=== PATIENT | male | born 1960 | race Caucasian/White ===

== ENCOUNTER → 2016-10-24 | Outpatient (CLI) | payer BC ==
[~2016-10-24] MED LIST: Albuterol 0.083% 2.5 MG/3 ML Neb Soln NEB ONE
== END ==
LOC: MW.RT 13:00
PROVIDERS: ATTEND Internal Medicine
DX: R06.2 Wheezing (principal)
CPT/HCPCS: 94060; 94729

== ENCOUNTER → 2016-11-18 | Outpatient (CLI) | payer BC ==
--- NOTE | 2016-11-18 10:01 | CR ---
EXAMINATION: Right elbow HISTORY: Pain COMPARISON: None TECHNIQUE: 3 views FINDINGS/IMPRESSION: There is no acute osseous abnormality, dislocation, or fracture identified. Bon e mineralization and joint spaces appear normal. No soft tissue swelling.
== END | disposition home or self-care (01) ==
LOC: MW.CHORTHO 07:42
PROVIDERS: ATTEND Orthopaedic Surgery
DX: M25.521 Pain in right elbow (principal); G89.29 Other chronic pain
CPT/HCPCS: 73080-26-RT; 73080-RT

== ENCOUNTER 2018-10-23 13:53 | Observation (INO) | payer BC ==
[2018-10-23] MEDS ORDERED: Sodium Chloride 0.9% 2.5 ML Syringe FLUSH PRN (13:57)
[2018-10-23] MEDS ORDERED: Albuterol/Ipratropium 3.0-0.5 MG/3 ML Neb Soln NEB ONE (13:57)
[2018-10-23] MEDS ORDERED: Sodium Chloride 0.9% 10 ML Syringe FLUSH PRN (13:57)
--- NOTE | 2018-10-23 13:58 | EDM.PDOC ---
ED HPI GENERAL MEDICAL PROBLEM - General Stated Complaint: SHORTNESS OF BREATH Time Seen by Provider: 10/23/18 13:57 Source of Information: Reports: Patient History Limitations: Reports: No Limitations - History of Present Illness INITIAL COMMENTS - FREE TEXT/NARRATIVE: HISTORY AND PHYSICAL: History of present illness: Patient is a 58-year-old male who presents to the emergency room with complaints of shortness of breath and productive cough. States he has had increased shortness of breath which is worse with ambulation or any physical activity. Does have a history of pneumonia which resulted in hospitalization for 9 days due to hypoxia. He denies any chest pain, abdominal pain, nausea, vomiting, diarrhea or constipation. States he has been able to eat and drink appropriately. Review of systems: As per history of present illness and below otherwise all systems reviewed and negative. Past medical history: As per history of present illness and as reviewed below otherwise noncontributory. Surgical history: As per history of present illness and as reviewed below otherwise noncontributory. Social history: See social history for further information Family history: As per history of present illness and as reviewed below otherwise noncontributory. Physical exam: General: Well-developed and well-nourished 58-year-old male. Alert and oriented. Nontoxic appearing and in no acute distress. HEENT: Atraumatic, normocephalic, pupils equal and reactive bilaterally, negative for conjunctival pallor or scleral icterus, mucous membranes moist, TMs normal bilaterally, throat clear, neck supple, nontender, trachea midline. No drooling or trismus noted. No meningeal signs. No hot potato voice noted. Lungs: Diminished with fine expiratory wheezing to the left lower lobe, breath sounds equal bilaterally, chest nontender. Heart: S1S2, regular rate and rhythm without overt murmur Abdomen: Soft, nondistended, nontender. Negative for masses or hepatosplenomegaly. Negative for costovertebral tenderness. Pelvis: Stable nontender. Genitourinary: Deferred. Rectal: Deferred. Skin: Intact, warm, dry. No lesions or rashes noted. Extremities: Atraumatic, negative for cords or calf pain. Neurovascular unremarkable. Neuro: Awake, alert, oriented. Cranial nerves II through XII unremarkable. Cerebellum unremarkable. Motor and sensory unremarkable throughout. Exam nonfocal. Notes: Patient does have oxygen saturation of 88% while ambulating. At rest with 2 L per nasal cannula he is 90-94%. Does have an elevation in his white count along with x-ray that shows no acute process. There are some increased vascular markings on the left lower lobe area with possible infiltrate. This would correlate with the patient's presentation and lab findings. Did discuss with patient inpatient versus outpatient treatment. He states he does not feel well enough to go home. Patient's oxygen saturation with ambulation is not above 90. Will call Dr. Fuentes. Dr. Fuentes was consulted on this patient for admission. He is agreeable to keeping this patient for observation. Patient is aware and agreeable. Denies any further questions or concerns at this time. Diagnostics: CBC, CMP, 2 view chest, EKG, blood cultures Therapeutics: DuoNeb, Solu-Medrol, Rocephin Impression: Pneumonia Hypoxia Plan: Observation admission to [facility] Definitive disposition and diagnosis as appropriate pending reevaluation and review of above. - Related Data Allergies Allergy/AdvReac Type Severity Reaction Status Date / Time No Known Allergies Allergy Verified 10/23/18 13:58 Home Meds: Home Meds . [No Known Home Meds] 06/28/15 [History] Past Medical History Other Respiratory History: With CPAP Other Gastrointestinal History: Blood per rectum, hx: Diverticulitis Other Genitourinary History: Hx: Abnormal Prostate exam ED ROS GENERAL - Review of Systems Review Of Systems: ROS reveals no pertinent complaints other than HPI. ED EXAM, GENERAL - Physical Exam Exam: See Below (See dictation) Course - Vital Signs Last Recorded V/S: Last Vital Signs Temp 98.7 F 10/23/18 15:36 Pulse 88 10/23/18 15:36 Resp 18 10/23/18 15:36 BP 129/73 10/23/18 15:36 Pulse Ox 97 10/23/18 15:36 - Orders/Labs/Meds Orders: Active Orders 24 hr Category Date Time Status Admission Status [Patient Status] [ADT] Stat ADT 10/23/18 14:59 Ordered Antiembolic Devices [RC] PER UNIT ROUTINE Care 10/23/18 16:17 Active Intake and Output [RC] Q12H Care 10/23/18 16:16 Active RT Aerosol Therapy [RC] ASDIRECTED Care 10/23/18 13:57 Active RT Aerosol Therapy [RC] ASDIRECTED Care 10/23/18 16:17 Active Vital Signs [RC] Q4H Care 10/23/18 16:16 Active Regular Diet [DIET] Diet 10/24/18 Breakfast Active BASIC METABOLIC PANEL,BMP [CHEM] AM Lab 10/24/18 05:11 Ordered CBC WITH AUTO DIFF [HEME] AM Lab 10/24/18 05:11 Ordered CULTURE BLOOD [BC] Stat Lab 10/23/18 14:59 Ordered CULTURE BLOOD [BC] Stat Lab 10/23/18 14:59 Ordered CULTURE SPUTUM + SMEAR [RM] Routine Lab 10/23/18 16:16 Ordered Acetaminophen [Tylenol] Med 10/23/18 16:26 Ordered 650 mg PO Q4H PRN Albuterol/Ipratropium [DuoNeb 3.0-0.5 MG/3 ML] Med 10/23/18 16:16 Active 3 ml NEB Q4HRRT PRN Ondansetron [Zofran] Med 10/23/18 16:26 Ordered 4 mg IVPUSH Q4H PRN Sodium Chloride 0.9% [Saline Flush] Med 10/23/18 13:57 Active 10 ml FLUSH ASDIRECTED PRN Sodium Chloride 0.9% [Saline Flush] Med 10/23/18 13:57 Active 2.5 ml FLUSH ASDIRECTED PRN cefTRIAXone [Rocephin] 1 gm Med 10/24/18 16:00 Active Sodium Chloride 0.9% [Normal Saline] 50 ml IV Q24H methylPREDNISolone Sod Succ [Solu-MEDROL] Med 10/24/18 04:00 Active 125 mg IVPUSH Q12H Blood Culture x2 Reflex Set [OM.PC] Stat Oth 10/23/18 14:59 Ordered Saline Lock Insert [OM.PC] Stat Oth 10/23/18 13:57 Ordered Sequential Compression Device [OM.PC] Routine Oth 10/23/18 16:16 Ordered Resuscitation Status Routine Resus Stat 10/23/18 16:16 Ordered Medication Orders Acetaminophen (Tylenol) 650 mg PO Q4H PRN PRN Reason: Pain/Fever Albuterol/Ipratropium (Duoneb 3.0-0.5 Mg/3 Ml) 3 ml NEB Q4HRRT PRN PRN Reason: Shortness of Breath Ceftriaxone Sodium 1 gm/ (Sodium Chloride) 50 mls @ 100 mls/hr IV Q24H AMADOR Methylprednisolone Sodium Succinate (Solu-Medrol) 125 mg IVPUSH Q12H AMADOR Ondansetron HCl (Zofran) 4 mg IVPUSH Q4H PRN PRN Reason: Nausea/Vomiting Sodium Chloride (Saline Flush) 10 ml FLUSH ASDIRECTED PRN PRN Reason: Keep Vein Open Sodium Chloride (Saline Flush) 2.5 ml FLUSH ASDIRECTED PRN PRN Reason: Keep Vein Open Labs: Laboratory Tests 10/23/18 10/23/18 Range/Units 14:00 14:00 WBC 14.24 H (4.0-11.0) K/uL RBC 4.38 L (4.50-5.90) M/uL Hgb 13.2 (13.0-17.0) g/dL Hct 39.7 (38.0-50.0) % MCV 90.6 (80.0-98.0) fL MCH 30.1 (27.0-32.0) pg MCHC 33.2 (31.0-37.0) g/dL RDW Std Deviation 42.9 (28.0-62.0) fl RDW Coeff of Bing 13 (11.0-15.0) % Plt Count 240 (150-400) K/uL MPV 9.70 (7.40-12.00) fL Neut % (Auto) 84.7 H (48.0-80.0) % Lymph % (Auto) 5.1 L (16.0-40.0) % [place] % (Auto) 9.5 (0.0-15.0) % Eos % (Auto) 0.6 (0.0-7.0) % Baso % (Auto) 0.1 (0.0-1.5) % Neut # (Auto) 12.1 H (1.4-5.7) K/uL Lymph # (Auto) 0.7 (0.6-2.4) K/uL [place] # (Auto) 1.4 H (0.0-0.8) K/uL Eos # (Auto) 0.1 (0.0-0.7) K/uL Baso # (Auto) 0.0 (0.0-0.1) K/uL Nucleated RBC % 0.0 /100WBC Nucleated RBCs # 0 K/uL Sodium 144 (136-148) mmol/L Potassium 4.0 (3.5-5.1) mmol/L Chloride 108 H (98-107) mmol/L Carbon Dioxide 28.7 (21.0-32.0) mmol/L BUN 16 (7.0-18.0) mg/dL Creatinine 1.2 (0.8-1.3) mg/dL Est Cr Clr Drug Dosing 76.76 mL/min Estimated GFR (MDRD) > 60.0 ml/min Glucose 134 H (74-106) mg/dL Calcium 9.2 (8.5-10.1) mg/dL Total Bilirubin 0.6 (0.2-1.0) mg/dL AST 20 (15-37) IU/L ALT 39 (14-63) IU/L Alkaline Phosphatase 117 H (46-116) U/L Total Protein 7.3 (6.4-8.2) g/dL Albumin 3.3 L (3.4-5.0) g/dL Globulin 4.0 (2.6-4.0) g/dL Albumin/Globulin Ratio 0.8 L (0.9-1.6) Meds: Medications Generic Name Dose Route Start Last Admin Trade Name Freq PRN Reason Stop Dose Admin Acetaminophen 650 mg 10/23/18 16:26 Tylenol PO Q4H PRN Pain/Fever Albuterol/Ipratropium 3 ml 10/23/18 16:16 Duoneb 3.0-0.5 Mg/3 Ml NEB Q4HRRT PRN Shortness of Breath Ceftriaxone Sodium 1 gm/ 50 mls @ 100 mls/hr 10/24/18 16:00 Sodium Chloride IV Q24H AMADOR Methylprednisolone Sodium Succinate 125 mg 10/24/18 04:00 Solu-Medrol IVPUSH Q12H AMADOR Ondansetron HCl 4 mg 10/23/18 16:26 Zofran IVPUSH Q4H PRN Nausea/Vomiting Sodium Chloride 10 ml 10/23/18 13:57 Saline Flush FLUSH ASDIRECTED PRN Keep Vein Open Sodium Chloride 2.5 ml 10/23/18 13:57 Saline Flush FLUSH ASDIRECTED PRN Keep Vein Open Discontinued Medications Generic Name Dose Route Start Last Admin Trade Name Freq PRN Reason Stop Dose Admin Albuterol/Ipratropium 3 ml 10/23/18 13:57 10/23/18 14:07 Duoneb 3.0-0.5 Mg/3 Ml NEB 10/23/18 13:58 3 ml ONETIME ONE Administration Azithromycin 500 mg 10/23/18 16:16 Zithromax PO 10/23/18 16:17 Q24H ONE Ceftriaxone Sodium/Dextrose 1 50 mls @ 100 mls/hr 10/23/18 14:59 10/23/18 15: 22 gm/ Premix IV 10/23/18 15:28 100 mls/hr ONETIME ONE Administration Methylprednisolone Sodium Succinate 125 mg 10/23/18 15:00 10/23/18 15:22 Solu-Medrol IVPUSH 10/23/18 15:01 125 mg ONETIME ONE Administration Departure - Departure Time of Disposition: 16:38 Disposition: Refer to Observation Clinical Impression: Hypoxia Pneumonia Qualifiers: Pneumonia type: due to unspecified organism Laterality: unspecified laterality Lung location: unspecified part of lung Qualified Code(s): J18.9 - Pneumonia, unspecified organism Referrals: PCP,None [Primary Care Provider] - Forms: ED Department Discharge - My Orders Last 24 Hours: My Active Orders 10/23/18 13:57 RT Aerosol Therapy [RC] ASDIRECTED Sodium Chloride 0.9% [Saline Flush] 10 ml FLUSH ASDIRECTED PRN Sodium Chloride 0.9% [Saline Flush] 2.5 ml FLUSH ASDIRECTED PRN Saline Lock Insert [OM.PC] Stat 10/23/18 14:59 Admission Status [Patient Status] [ADT] Stat CULTURE BLOOD [BC] Stat CULTURE BLOOD [BC] Stat Blood Culture x2 Reflex Set [OM.PC] Stat - Assessment/Plan Last 24 Hours: My Active Orders 10/23/18 13:57 RT Aerosol Therapy [RC] ASDIRECTED Sodium Chloride 0.9% [Saline Flush] 10 ml FLUSH ASDIRECTED PRN Sodium Chloride 0.9% [Saline Flush] 2.5 ml FLUSH ASDIRECTED PRN Saline Lock Insert [OM.PC] Stat 10/23/18 14:59 Admission Status [Patient Status] [ADT] Stat CULTURE BLOOD [BC] Stat CULTURE BLOOD [BC] Stat Blood Culture x2 Reflex Set [OM.PC] Stat
[2018-10-23 14:40] LABS: CHLORIDE,CL 108 mmol/L (98-107); SODIUM,NA 144 mmol/L (136-148)
[2018-10-23] MEDS ORDERED: cefTRIAXone 1 GM in Premix Bag 1 BAG IV ONE (14:59)
[2018-10-23] MEDS ORDERED: methylPREDNISolone Sodium Succinate 125 MG/2 ML SDV IVPUSH ONE (15:00)
--- NOTE | 2018-10-23 15:11 | CR ---
INDICATION: Shortness of breath TECHNIQUE: Chest 2 views. COMPARISON: None FINDINGS: The heart is normal in size. The pulmonary vasculature is within normal limits. The lungs are clear without focal consolidation, pleural effusion or pneumothorax. There are mild degenerative changes of the thoracic spine. IMPRESSION: No acute process. Dictated by Leona Amezquita MD @ 10/23/2018 3:08:19 PM Dictated by: Leona Amezquita MD @ 10/23/2018 15:08:47 (Electronically Signed)
[2018-10-23] MEDS ORDERED: Albuterol/Ipratropium 3.0-0.5 MG/3 ML Neb Soln NEB PRN (16:16)
[2018-10-23] MEDS ORDERED: Azithromycin 250 MG Tab PO ONE (16:16)
--- NOTE | 2018-10-23 16:23 | PCM.HP ---
H&P History of Present Illness - General Date of Service: 10/23/18 Admit Problem/Dx: Admission Diagnosis/Problem Admission Diagnosis/Problem Pneumonia - History of Present Illness Initial Comments - Free Text/Narative: The patient is a 58-year-old male who presented to the ER with increased shortness of breath and cough for the past few days. He noted that his cough was productive but is now more dry. He notes subjective fevers but hasn't had a thermometer at home. He notes the shortness of breath is worse with exertion but denies any orthopnea. He denies chest pain, abdominal pain, nausea, vomiting. He notes that he was admitted about 3 or 4 years ago for pneumonia. The patient had pulmonary function testing back in October 2016 and the report reads mild obstructive defect, but the patient states he was never started on any medications at that time. Patient is a former smoker but quit over 10 years ago. Patient denies any history of OH, CHF or stroke. In the ER, lab work showed an elevated white count 14, chest x-ray was read as no acute cardiopulmonary process. An EKG showed normal sinus rhythm. He was given a breathing treatment, one dose of Rocephin and 1 dose of Solu-Medrol. In the ER, he was satting 88% on room air, so they put him on O2 is now 97% on 2 L - Related Data Allergies/Adverse Reactions: Allergies Allergy/AdvReac Type Severity Reaction Status Date / Time No Known Allergies Allergy Verified 10/23/18 13:58 Home Medications: Home Meds . [No Known Home Meds] 06/28/15 [History] Past Medical History Cardiovascular History: Reports: None Respiratory History: Reports: Pneumonia, Recurrent Other Respiratory History: With CPAP Other Gastrointestinal History: Blood per rectum, hx: Diverticulitis Other Genitourinary History: Hx: Abnormal Prostate exam Endocrine/Metabolic History: Reports: None - Past Surgical History Other HEENT Surgeries/Procedures: polyps from vocal cords removed Social & Family History - Family History Family Medical History: Noncontributory - Tobacco Use Smoking Status *Q: Former Smoker Used Tobacco, but Quit: Yes Month/Year Tobacco Last Used: 2007 - Caffeine Use Caffeine Use: Reports: Coffee, Soda - Recreational Drug Use Recreational Drug Use: No H&P Review of Systems - Review of Systems: Review Of Systems: See Below General: Reports: Fever HEENT: Reports: No Symptoms. Denies: Sinus Congestion Pulmonary: Reports: Shortness of Breath, Cough Cardiovascular: Reports: No Symptoms Gastrointestinal: Reports: No Symptoms Genitourinary: Reports: No Symptoms Musculoskeletal: Reports: No Symptoms Skin: Reports: No Symptoms Psychiatric: Reports: No Symptoms Neurological: Reports: No Symptoms Hematologic/Lymphatic: Reports: No Symptoms Immunologic: Reports: No Symptoms Exam - Exam Exam: See Below - Vital Signs Vital Signs: Last Vital Signs Temp 98.7 F 10/23/18 15:36 Pulse 88 10/23/18 15:36 Resp 18 10/23/18 15:36 BP 129/73 10/23/18 15:36 Pulse Ox 97 10/23/18 15:36 Weight: 99.79 kg - Exam Quality Assessment: Supplemental Oxygen General: Alert, Oriented, Cooperative HEENT: Conjunctiva Clear, Mucosa Moist & [place], Posterior Pharynx Clear, Pupils Equal, Pupils Reactive Neck: Supple, Trachea Midline Lungs: Decreased Breath Sounds Cardiovascular: Regular Rate, Regular Rhythm GI/Abdominal Exam: Normal Bowel Sounds, Soft, Non-Tender, No Distention Extremities: No Pedal Edema Skin: Warm, Dry, Intact Neuro Extensive - Mental Status: Alert, Oriented x3 Psychiatric: Alert, Normal Affect, Normal Mood - Patient Data Lab Results Last 24 hrs: Laboratory Results - last 24 hr 10/23/18 10/23/18 Range/Units 14:00 14:00 WBC 14.24 H (4.0-11.0) K/uL RBC 4.38 L (4.50-5.90) M/uL Hgb 13.2 (13.0-17.0) g/dL Hct 39.7 (38.0-50.0) % MCV 90.6 (80.0-98.0) fL MCH 30.1 (27.0-32.0) pg MCHC 33.2 (31.0-37.0) g/dL RDW Std Deviation 42.9 (28.0-62.0) fl RDW Coeff of Bing 13 (11.0-15.0) % Plt Count 240 (150-400) K/uL MPV 9.70 (7.40-12.00) fL Neut % (Auto) 84.7 H (48.0-80.0) % Lymph % (Auto) 5.1 L (16.0-40.0) % [place] % (Auto) 9.5 (0.0-15.0) % Eos % (Auto) 0.6 (0.0-7.0) % Baso % (Auto) 0.1 (0.0-1.5) % Neut # (Auto) 12.1 H (1.4-5.7) K/uL Lymph # (Auto) 0.7 (0.6-2.4) K/uL [place] # (Auto) 1.4 H (0.0-0.8) K/uL Eos # (Auto) 0.1 (0.0-0.7) K/uL Baso # (Auto) 0.0 (0.0-0.1) K/uL Nucleated RBC % 0.0 /100WBC Nucleated RBCs # 0 K/uL Sodium 144 (136-148) mmol/L Potassium 4.0 (3.5-5.1) mmol/L Chloride 108 H (98-107) mmol/L Carbon Dioxide 28.7 (21.0-32.0) mmol/L BUN 16 (7.0-18.0) mg/dL Creatinine 1.2 (0.8-1.3) mg/dL Est Cr Clr Drug Dosing 76.76 mL/min Estimated GFR (MDRD) > 60.0 ml/min Glucose 134 H (74-106) mg/dL Calcium 9.2 (8.5-10.1) mg/dL Total Bilirubin 0.6 (0.2-1.0) mg/dL AST 20 (15-37) IU/L ALT 39 (14-63) IU/L Alkaline Phosphatase 117 H (46-116) U/L Total Protein 7.3 (6.4-8.2) g/dL Albumin 3.3 L (3.4-5.0) g/dL Globulin 4.0 (2.6-4.0) g/dL Albumin/Globulin Ratio 0.8 L (0.9-1.6) Result Diagrams: 10/23/18 14:00 10/23/18 14:00 Franco Results Last 24 hrs: Microbiology 10/23/18 15:12 Anaerobic Blood Culture - Final Blood - Venous - Lab Draw Problem List Initiated/Reviewed/Updated: Yes Orders Last 24hrs: Active Orders 24 hr Category Date Time Status Admission Status [Patient Status] [ADT] Stat ADT 10/23/18 14:59 Active Antiembolic Devices [RC] PER UNIT ROUTINE Care 10/23/18 16:17 Ordered Intake and Output [RC] ASDIRECTED Care 10/23/18 16:16 Ordered RT Aerosol Therapy [RC] ASDIRECTED Care 10/23/18 13:57 Active RT Aerosol Therapy [RC] ASDIRECTED Care 10/23/18 16:17 Ordered Vital Signs [RC] PER UNIT ROUTINE Care 10/23/18 16:16 Ordered Regular Diet [DIET] Diet 10/24/18 Breakfast Ordered BASIC METABOLIC PANEL,BMP [CHEM] Routine Lab 10/23/18 16:16 Ordered CBC WITH AUTO DIFF [HEME] AM Lab 10/24/18 05:11 Ordered CULTURE BLOOD [BC] Stat Lab 10/23/18 15:05 Received CULTURE BLOOD [BC] Stat Lab 10/23/18 15:12 Results CULTURE SPUTUM + SMEAR [RM] Routine Lab 10/23/18 16:16 Ordered Albuterol/Ipratropium [DuoNeb 3.0-0.5 MG/3 ML] Med 10/23/18 16:16 Ordered 3 ml NEB Q4HRRT PRN Azithromycin [Zithromax] Med 10/23/18 16:16 Once 500 mg PO Q24H ONE Sodium Chloride 0.9% [Saline Flush] Med 10/23/18 13:57 Active 10 ml FLUSH ASDIRECTED PRN Sodium Chloride 0.9% [Saline Flush] Med 10/23/18 13:57 Active 2.5 ml FLUSH ASDIRECTED PRN cefTRIAXone [Rocephin] 1 gm Med 10/23/18 16:30 Ordered Sodium Chloride 0.9% [Normal Saline] 50 ml IV Q24H methylPREDNISolone Sod Succ [Solu-MEDROL] Med 10/23/18 16:30 Ordered 125 mg IVPUSH Q12H Blood Culture x2 Reflex Set [OM.PC] Stat Oth 10/23/18 14:59 Ordered Saline Lock Insert [OM.PC] Stat Oth 10/23/18 13:57 Ordered Sequential Compression Device [OM.PC] Routine Oth 10/23/18 16:16 Ordered Resuscitation Status Routine Resus Stat 10/23/18 16:16 Ordered Medication Orders Sodium Chloride (Saline Flush) 10 ml FLUSH ASDIRECTED PRN PRN Reason: Keep Vein Open Sodium Chloride (Saline Flush) 2.5 ml FLUSH ASDIRECTED PRN PRN Reason: Keep Vein Open Assessment/Plan Comment:: 1. Admit for observation 2. Code status- full 3. Vitals per routine 4. I/Os per routine 5. Diet- regular 6. DVT prophylaxis with SCD 7. Hypoxia secondary to possible COPD exacerbation vs pneumonia- will treat with antibiotics (Rocephin and Azithromycin), duonebs, solumedrol. Will try to obtain a sputum culture.
[2018-10-23] MEDS ORDERED: Acetaminophen 325 MG Tab PO PRN (16:26)
[2018-10-23] MEDS ORDERED: Ondansetron 4 MG/2 ML SDV IVPUSH PRN (16:26)
[2018-10-24] MEDS ORDERED: methylPREDNISolone Sodium Succinate 125 MG/2 ML SDV IVPUSH SCH (04:00)
[2018-10-24 06:38] LABS: CHLORIDE,CL 107 mmol/L (98-107); SODIUM,NA 143 mmol/L (136-148)
[2018-10-24 08:14] VITALS: BP 140/77
--- NOTE | 2018-10-24 10:03 | PCM.DCSUM1 ---
Discharge Summary - Discharge Data Discharge Date: 10/24/18 Discharge Disposition: Home, Self-Care 01 Condition: Stable - Patient Summary/Data Hospital Course: 58 yo male with pmh of COPD who was admitted for COPD exacerbation and possible pneumonia. He presented with shortness of breath, cough and wheezing. He has a home O2 meter and he was reported a reading of 88% or room air. His WBC was 14,000. His CXR showed no acute process. He was treated with duonebs, solumedrol, rocephine and azithromycin with improvement in symptoms. Today he is walking the hallways on room air and satting 90%. He was dicharged on five more days of azithromycin, and prednisone with flovent and albuterol inhaler. - Discharge Plan Prescriptions/Med Rec: Albuterol [Proventil HFA] 1 puff INH QID PRN #1 inhaler PRN Reason: Wheezing Azithromycin [Zithromax] 250 mg PO DAILY #5 tab Fluticasone Propionate [Flovent] 1 puff IH BID #1 disk.w.dev predniSONE [Prednisone] 50 mg PO DAILY #5 tablet Home Medications: Home Meds Citalopram [Citalopram HBr] 20 mg PO DAILY 10/23/18 [History] Umeclidinium Brm/Vilanterol Tr [Anoro Ellipta 62.5-25 MCG] 1 each IH DAILY 10/23 [History] atorvaSTATin [Lipitor] 20 mg PO BEDTIME 10/23/18 [History] Albuterol [Proventil HFA] 1 puff INH QID PRN #1 inhaler 10/24/18 [Rx] Azithromycin [Zithromax] 250 mg PO DAILY #5 tab 10/24/18 [Rx] Fluticasone Propionate [Flovent] 1 puff IH BID #1 disk.w.dev 10/24/18 [Rx] predniSONE [Prednisone] 50 mg PO DAILY #5 tablet 10/24/18 [Rx] Patient Handouts: Albuterol inhalation aerosol, Azithromycin tablets, Fluticasone inhalation aerosol, Prednisone tablets [facility] - - Discharge Summary/Plan Comment DC Time >30 min.: No - Patient Data Vitals - Most Recent: Last Vital Signs Temp 36.6 C 10/24/18 08:00 Pulse 87 10/24/18 08:00 Resp 19 10/24/18 08:00 BP 140/77 10/24/18 08:00 Pulse Ox 91 L 10/24/18 08:00 Weight - Most Recent: 99.79 kg I&O - Last 24 hours: Intake & Output 10/23/18 10/24/18 10/24/18 22:59 06:59 14:59 Intake Total 800 Output Total 600 Balance 200 Lab Results - Last 24 hrs: Laboratory Results - last 24 hr 10/23/18 10/23/18 10/24/18 Range/Units 14:00 14:00 06:02 WBC 14.24 H 15.22 H (4.0-11.0) K/uL RBC 4.38 L 4.25 L (4.50-5.90) M/uL Hgb 13.2 12.8 L (13.0-17.0) g/dL Hct 39.7 38.2 (38.0-50.0) % MCV 90.6 89.9 (80.0-98.0) fL MCH 30.1 30.1 (27.0-32.0) pg MCHC 33.2 33.5 (31.0-37.0) g/dL RDW Std Deviation 42.9 42.3 (28.0-62.0) fl RDW Coeff of Bing 13 13 (11.0-15.0) % Plt Count 240 262 (150-400) K/uL MPV 9.70 9.60 (7.40-12.00) fL Neut % (Auto) 84.7 H 91.6 H (48.0-80.0) % Lymph % (Auto) 5.1 L 5.1 L (16.0-40.0) % [place] % (Auto) 9.5 3.2 (0.0-15.0) % Eos % (Auto) 0.6 0.0 (0.0-7.0) % Baso % (Auto) 0.1 0.1 (0.0-1.5) % Neut # (Auto) 12.1 H 14.0 H (1.4-5.7) K/uL Lymph # (Auto) 0.7 0.8 (0.6-2.4) K/uL [place] # (Auto) 1.4 H 0.5 (0.0-0.8) K/uL Eos # (Auto) 0.1 0.0 (0.0-0.7) K/uL Baso # (Auto) 0.0 0.0 (0.0-0.1) K/uL Nucleated RBC % 0.0 0.0 /100WBC Nucleated RBCs # 0 0 K/uL Sodium 144 (136-148) mmol/L Potassium 4.0 (3.5-5.1) mmol/L Chloride 108 H (98-107) mmol/L Carbon Dioxide 28.7 (21.0-32.0) mmol/L BUN 16 (7.0-18.0) mg/dL Creatinine 1.2 (0.8-1.3) mg/dL Est Cr Clr Drug Dosing 76.76 mL/min Estimated GFR (MDRD) > 60.0 ml/min Glucose 134 H (74-106) mg/dL Calcium 9.2 (8.5-10.1) mg/dL Total Bilirubin 0.6 (0.2-1.0) mg/dL AST 20 (15-37) IU/L ALT 39 (14-63) IU/L Alkaline Phosphatase 117 H (46-116) U/L Total Protein 7.3 (6.4-8.2) g/dL Albumin 3.3 L (3.4-5.0) g/dL Globulin 4.0 (2.6-4.0) g/dL Albumin/Globulin Ratio 0.8 L (0.9-1.6) 10/24/18 Range/Units 06:02 WBC (4.0-11.0) K/uL RBC (4.50-5.90) M/uL Hgb (13.0-17.0) g/dL Hct (38.0-50.0) % MCV (80.0-98.0) fL MCH (27.0-32.0) pg MCHC (31.0-37.0) g/dL RDW Std Deviation (28.0-62.0) fl RDW Coeff of Bing (11.0-15.0) % Plt Count (150-400) K/uL MPV (7.40-12.00) fL Neut % (Auto) (48.0-80.0) % Lymph % (Auto) (16.0-40.0) % [place] % (Auto) (0.0-15.0) % Eos % (Auto) (0.0-7.0) % Baso % (Auto) (0.0-1.5) % Neut # (Auto) (1.4-5.7) K/uL Lymph # (Auto) (0.6-2.4) K/uL [place] # (Auto) (0.0-0.8) K/uL Eos # (Auto) (0.0-0.7) K/uL Baso # (Auto) (0.0-0.1) K/uL Nucleated RBC % /100WBC Nucleated RBCs # K/uL Sodium 143 (136-148) mmol/L Potassium 4.6 (3.5-5.1) mmol/L Chloride 107 (98-107) mmol/L Carbon Dioxide 26.4 (21.0-32.0) mmol/L BUN 18 (7.0-18.0) mg/dL Creatinine 1.1 (0.8-1.3) mg/dL Est Cr Clr Drug Dosing 78.91 mL/min Estimated GFR (MDRD) > 60.0 ml/min Glucose 172 H (74-106) mg/dL Calcium 9.3 (8.5-10.1) mg/dL Total Bilirubin (0.2-1.0) mg/dL AST (15-37) IU/L ALT (14-63) IU/L Alkaline Phosphatase (46-116) U/L Total Protein (6.4-8.2) g/dL Albumin (3.4-5.0) g/dL Globulin (2.6-4.0) g/dL Albumin/Globulin Ratio (0.9-1.6) RIKI Results - Last 24 hrs: Microbiology 10/23/18 18:25 Gram Stain - Preliminary Sputum - Expectorated 10/23/18 15:12 Anaerobic Blood Culture - Final Blood - Venous - Lab Draw Med Orders - Current: Current Medications Acetaminophen (Tylenol) 650 mg PO Q4H PRN PRN Reason: Pain/Fever Albuterol/Ipratropium (Duoneb 3.0-0.5 Mg/3 Ml) 3 ml NEB Q4HRRT PRN PRN Reason: Shortness of Breath Ceftriaxone Sodium 1 gm/ (Sodium Chloride) 50 mls @ 100 mls/hr IV Q24H [facility] Methylprednisolone Sodium Succinate (Solu-Medrol) 125 mg IVPUSH Q12H [facility] Last Admin: 10/24/18 04:08 Dose: 125 mg Ondansetron HCl (Zofran) 4 mg IVPUSH Q4H PRN PRN Reason: Nausea/Vomiting Sodium Chloride (Saline Flush) 10 ml FLUSH ASDIRECTED PRN PRN Reason: Keep Vein Open Sodium Chloride (Saline Flush) 2.5 ml FLUSH ASDIRECTED PRN PRN Reason: Keep Vein Open Discontinued Medications Albuterol/Ipratropium (Duoneb 3.0-0.5 Mg/3 Ml) 3 ml NEB ONETIME ONE Stop: 10/23/18 13:58 Last Admin: 10/23/18 14:07 Dose: 3 ml Azithromycin (Zithromax) 500 mg PO Q24H ONE Stop: 10/23/18 16:17 Last Admin: 10/23/18 16:53 Dose: 500 mg Ceftriaxone Sodium/Dextrose 1 (gm/ Premix) 50 mls @ 100 mls/hr IV ONETIME ONE Stop: 10/23/18 15:28 Last Admin: 10/23/18 15:22 Dose: 100 mls/hr Methylprednisolone Sodium Succinate (Solu-Medrol) 125 mg IVPUSH ONETIME ONE Stop: 10/23/18 15:01 Last Admin: 10/23/18 15:22 Dose: 125 mg
[2018-10-24] MEDS ORDERED: cefTRIAXone 1 GM in Sodium Chloride 0.9% 50 ML IV SCH (16:00)
== END 2018-10-24 10:30 | disposition home or self-care (01) ==
LOC: MW.ED 13:53 → MW.MS 15:22
PROVIDERS: ADMIT Internal Medicine; ATTEND Internal Medicine
DX: J44.1 Chronic obstructive pulmonary disease with (acute) exacerbation (principal); Z99.89 Dependence on other enabling machines and devices; Z87.01 Personal history of pneumonia (recurrent); Z87.891 Personal history of nicotine dependence; Z79.51 Long term (current) use of inhaled steroids; Z79.52 Long term (current) use of systemic steroids; Z79.899 Other long term (current) drug therapy
CPT/HCPCS: 36415; 71046; 80048; 80053; 85025; 87040; 87070; 87205; 93005; 94640; 96365; 96375; 99285; A9270; J0696; J2930; 96376; G0378; J7620-GY

== ENCOUNTER 2020-05-17 22:34 | Emergency (ER) | payer BC, OTHER ==
[2020-05-17] MEDS ORDERED: Sodium Chloride 0.9% 10 ML Syringe FLUSH PRN (22:56)
[2020-05-17] MEDS ORDERED: Sodium Chloride 0.9% 2.5 ML Syringe FLUSH PRN (22:56)
[2020-05-17] MEDS ORDERED: Albuterol 8 GM Inhaler INH ONE (22:59)
[2020-05-17] MEDS ORDERED: methylPREDNISolone Sodium Succinate 125 MG/2 ML SDV IVPUSH STA (23:01)
--- NOTE | 2020-05-17 23:01 | EDM.PDOC ---
ED HPI GENERAL MEDICAL PROBLEM - General Chief Complaint: Respiratory Problem Stated Complaint: SOB Time Seen by Provider: 05/17/20 22:42 - History of Present Illness INITIAL COMMENTS - FREE TEXT/NARRATIVE: History of present illness: [] The patient is short of breath and has low oxygen saturation of 88-90. He has a home oxygen monitor. He does not have much cough and he does not have any acute fever. He did have symptoms for about days of weakness and shortness of breath with cough. He was diagnosed 7 days ago was COVID positive. Patient has been relatively asymptomatic until tonight. There is no fever or cough. Re view of his old chart reveals in October of last year he felt similar to the night and had a pneumonia for which he required overnight hospitalization. The patient does not use an inhaler chamber but just uses his albuterol inhaler at home. He does not have a nebulizer. He is not on steroids recently. Review of systems: As per history of present illness and below otherwise all systems reviewed and negative. Past medical history: As per history of present illness and as reviewed below otherwise noncontributory. Surgical history: As per history of present illness and as reviewed below otherwise noncontributory. Social history: No reported history of drug or alcohol abuse. Family history: As per history of present illness and as reviewed below otherwise noncontributory. Physical exam: Constitutional - well developed, well-nourished and in no acute distress HEENT - normocephalic, no evidence of trauma - external nose and mouth normal - no mass in neck and no JVD - mucosae moist EYES - full EOM, PERRL, no icterus - no evidence of inflammation, injection, or drainage Respiratory - no respiratory distress, equal bilateral expansion, lungs clear to auscultation and no abnormal lung sounds Cardiovascular - Regular Rhythm with S1 and S2 appreciated and no murmur, gallop or rub. GI - abdomen soft without distension or organomegaly - normal bowel sounds - no guard or rebound Musculoskeletal no gross deformity of long bones or joints - no tenderness, swelling or edema Neurologic - Alert and oriented times four - CN II-XII grossly intact - motor sensory and coordination symmetrically normal Psychiatric - appropriate mood and affect with normal thought content Hematologic - No petechiae or purpura - mucosa appropriate color and sclera not pale - normal nail bed color and refill Integument - no rash or evidence of trauma - normal turgor Diagnostics: [] Therapeutics: [] Impression: [] Plan: [] Definitive disposition and diagnosis as appropriate pending reevaluation and review of above. - Related Data Allergies Allergy/AdvReac Type Severity Reaction Status Date / Time No Known Allergies Allergy Verified 05/17/20 22:54 Home Meds: Home Meds Citalopram [Citalopram HBr] 20 mg PO DAILY 10/23/18 [History] Umeclidinium Brm/Vilanterol Tr [Anoro Ellipta 62.5-25 MCG] 1 each IH DAILY 10/23/18 [History] atorvaSTATin [Lipitor] 20 mg PO BEDTIME 10/23/18 [History] Albuterol [Proventil HFA] 1 puff INH QID PRN #1 inhaler 10/24/18 [Rx] Azithromycin [Zithromax] 250 mg PO DAILY #5 tab 10/24/18 [Rx] Fluticasone Propionate [Flovent] 1 puff IH BID #1 disk.w.dev 10/24/18 [Rx] predniSONE [Prednisone] 50 mg PO DAILY #5 tablet 10/24/18 [Rx] predniSONE [Prednisone] 60 mg PO DAILY 5 Days #24 tablet 05/17/20 [Rx] Past Medical History Cardiovascular History: Reports: None Respiratory History: Reports: Pneumonia, Recurrent Other Respiratory History: With CPAP Other Gastrointestinal History: Blood per rectum, hx: Diverticulitis Other Genitourinary History: Hx: Abnormal Prostate exam Psychiatric History: Reports: Anxiety Endocrine/Metabolic History: Reports: None - Past Surgical History Other HEENT Surgeries/Procedures: polyps from vocal cords removed Social & Family History - Family History Family Medical History: Noncontributory - Caffeine Use Caffeine Use: Reports: Coffee, Soda ED ROS GENERAL - Review of Systems Review Of Systems: Comprehensive ROS is negative, except as noted in HPI. ED EXAM, GENERAL - Physical Exam Exam: See Below Free Text/Narrative:: My physical exam is in the HPI Course - Vital Signs Text/Narrative:: The patient on x-ray has bilateral peripheral infiltrates. Patient did well after the chamber was used with his inhaler. Plan to discharge on steroids with a chamber and instructed to be is not maintaining his oxygen over 87% he should return to the ER or if he feels like he is not getting enough oxygen. Last Recorded V/S: Last Vital Signs Temp 99.5 F 05/17/20 22:49 Pulse 90 05/17/20 22:49 Resp 18 05/17/20 22:49 BP 150/87 H 05/17/20 22:49 Pulse Ox 90 L 05/17/20 22:49 - Orders/Labs/Meds Orders: Active Orders 24 hr Category Date Time Status RT Post Treatment Assessment [RC] Click to Edit Care 05/17/20 22:59 Active RT Pre-Treatment Assessment [RC] Click to Edit Care 05/17/20 22:59 Active COMPREHENSIVE METABOLIC PN,CMP [CHEM] Stat Lab 05/17/20 23:30 Received Sodium Chloride 0.9% [Saline Flush] Med 05/17/20 22:56 Active 10 ml FLUSH ASDIRECTED PRN Sodium Chloride 0.9% [Saline Flush] Med 05/17/20 22:56 Active 2.5 ml FLUSH ASDIRECTED PRN Saline Lock Insert [OM.PC] Stat Oth 05/17/20 22:57 Ordered Medication Orders Sodium Chloride (Saline Flush) 10 ml FLUSH ASDIRECTED PRN PRN Reason: Keep Vein Open Sodium Chloride (Saline Flush) 2.5 ml FLUSH ASDIRECTED PRN PRN Reason: Keep Vein Open Labs: Laboratory Tests 05/17/20 Range/Units 23:30 WBC 4.10 (4.0-11.0) K/uL RBC 4.50 (4.50-5.90) M/uL Hgb 13.3 (13.0-17.0) g/dL Hct 41.4 (38.0-50.0) % MCV 92.0 (80.0-98.0) fL MCH 29.6 (27.0-32.0) pg MCHC 32.1 (31.0-37.0) g/dL RDW Std Deviation 43.8 (28.0-62.0) fl RDW Coeff of Bing 13 (11.0-15.0) % Plt Count 188 (150-400) K/uL MPV 10.00 (7.40-12.00) fL Neut % (Auto) 79.4 (48.0-80.0) % Lymph % (Auto) 11.7 L (16.0-40.0) % [place] % (Auto) 8.5 (0.0-15.0) % Eos % (Auto) 0.2 (0.0-7.0) % Baso % (Auto) 0.2 (0.0-1.5) % Neut # (Auto) 3.3 (1.4-5.7) K/uL Lymph # (Auto) 0.5 L (0.6-2.4) K/uL [place] # (Auto) 0.4 (0.0-0.8) K/uL Eos # (Auto) 0.0 (0.0-0.7) K/uL Baso # (Auto) 0.0 (0.0-0.1) K/uL Nucleated RBC % 0.0 /100WBC Nucleated RBCs # 0 K/uL Meds: Medications Generic Name Dose Route Start Last Admin Trade Name Freq PRN Reason Stop Dose Admin Sodium Chloride 10 ml 05/17/20 22:56 Saline Flush FLUSH ASDIRECTED PRN Keep Vein Open Sodium Chloride 2.5 ml 05/17/20 22:56 Saline Flush FLUSH ASDIRECTED PRN Keep Vein Open Discontinued Medications Generic Name Dose Route Start Last Admin Trade Name Freq PRN Reason Stop Dose Admin Albuterol 18 gm 05/17/20 22:59 Ventolin Hfa INH 05/17/20 23:00 ONETIME ONE Albuterol Confirm 05/17/20 23:04 Ventolin Hfa Administered 05/17/20 23:05 Dose 18 gm .ROUTE .STK-MED ONE Methylprednisolone Sodium Succinate 125 mg 05/17/20 23:01 Solu-Medrol IVPUSH 05/17/20 23:02 STAT STA Prednisone 60 mg 05/17/20 23:45 Prednisone PO 05/17/20 23:46 ONETIME ONE Departure - Departure Time of Disposition: 23:55 Disposition: Home, Self-Care 01 Condition: Good Clinical Impression: Bilateral interstitial pneumonia, COVID-19 - Discharge Information Prescriptions: predniSONE [Prednisone] 60 mg PO DAILY 5 Days #24 tablet Instructions: Prevent the Spread of COVID-19 if You Are Sick - [facility] [place] Referrals: PCP,None [Primary Care Provider] - Forms: ED Department Discharge Additional Inst[facility]: [facility] [address] [place] [id number] [facility] [address] [place] [id number] The following information is given to patients seen in the emergency department who are being discharged to home. This information is to outline your options for follow-up care. We provide all patients seen in our emergency department with a follow-up referral. The need for follow-up, as well as the timing and circumstances, are variable depending upon the specifics of your emergency department visit. If you don't have a primary care physician on staff, we will provide you with a referral. We always advise you to contact your personal physician following an emergency department visit to inform them of the circumstance of the visit and for follow-up with them and/or the need for any referrals to a consulting specialist. The emergency department will also refer you to a specialist when appropriate. This referral assures that you have the opportunity for follow-up care with a specialist. All of these measure are taken in an effort to provide you with optimal care, which includes your follow-up. Under all circumstances we always encourage you to contact your private physician who remains a resource for coordinating your care. When calling for follow-up care, please make the office aware that this follow-up is from your recent emergency room visit. If for any reason you are refused follow-up, please contact the [facility] Emergency Department at and asked to speak to the emergency department charge nurse. Sepsis Event Note (ED) - Evaluation Sepsis Screening Result: No Definite Risk - Focused Exam Vital Signs: Vital Signs Temp Pulse Resp BP Pulse Ox 05/17/20 22:49 99.5 F 90 18 150/87 H 90 L - My Orders Last 24 Hours: My Active Orders 05/17/20 22:56 Sodium Chloride 0.9% [Saline Flush] 10 ml FLUSH ASDIRECTED PRN Sodium Chloride 0.9% [Saline Flush] 2.5 ml FLUSH ASDIRECTED PRN 05/17/20 22:57 Saline Lock Insert [OM.PC] Stat 05/17/20 22:59 RT Post Treatment Assessment [RC] Click to Edit RT Pre-Treatment Assessment [RC] Click to Edit 05/17/20 23:30 COMPREHENSIVE METABOLIC PN,CMP [CHEM] Stat - Assessment/Plan Last 24 Hours: My Active Orders 05/17/20 22:56 Sodium Chloride 0.9% [Saline Flush] 10 ml FLUSH ASDIRECTED PRN Sodium Chloride 0.9% [Saline Flush] 2.5 ml FLUSH ASDIRECTED PRN 05/17/20 22:57 Saline Lock Insert [OM.PC] Stat 05/17/20 22:59 RT Post Treatment Assessment [RC] Click to Edit RT Pre-Treatment Assessment [RC] Click to Edit 05/17/20 23:30 COMPREHENSIVE METABOLIC PN,CMP [CHEM] Stat
[2020-05-17] MEDS ORDERED: Albuterol HFA 18 Gm Inhaler ONE (23:04)
--- NOTE | 2020-05-17 23:26 | CR ---
INDICATION: Dyspnea and hypoxia. COMPARISON: 10/23/2018. FINDINGS/IMPRESSION: Upright portable AP chest radiographs. Suggestion of subtle patchy opacities in the lateral mid and lower lungs bilaterally, apparently new compared to the previous exam, possibly representing an infectious or inflammatory process such as multifocal pneumonia. No pleural effusions. Normal heart size. Unremarkable bony structures. Dictated by Ralph Craig MD @ 05/17/2020 11:24:07 PM Dictated by: Ralph Craig MD @ 05/17/2020 23:25:00 (Electronically Signed)
[2020-05-17] MEDS ORDERED: predniSONE 20 MG Tab PO ONE (23:45)
[2020-05-18 00:08] LABS: BLOOD UREA NITROGEN,BUN 21 mg/dL (7.0-18.0); CARBON DIOXIDE,CO2 28.3 mmol/L (21.0-32.0); CHLORIDE,CL 106 mmol/L (98-107); GLUCOSE RANDOM 107 mg/dL (74-106); POTASSIUM,K 4.2 mmol/L (3.5-5.1); SODIUM,NA 141 mmol/L (136-148)
[2020-05-18] MEDS ORDERED: Sodium Chloride 0.9% 1,000 ML IV ONE (00:49)
[2020-05-18] MEDS ORDERED: Azithromycin 250 MG Tab PO STA (01:56)
[2020-05-18] MEDS ORDERED: REMDESIVIR 200 MG in Sodium Chloride 0.9% 250 ML IV ONE (03:13)
[2020-05-18 07:14] VITALS: PULSE 77
[2020-05-18 08:01] VITALS: BP 145/86
== END 2020-05-18 09:10 ==
LOC: MW.ED 22:34
DX: U07.1 COVID-19 (principal); J84.9 Interstitial pulmonary disease, unspecified; F41.9 Anxiety disorder, unspecified; Z79.899 Other long term (current) drug therapy
CPT/HCPCS: 36415; 71045; 80053; 85025; 96361; 96365; 96375; 99285; A9270; J2930; J7030; J7050; 99284; J3535-GY

== ENCOUNTER 2020-05-30 11:40 | Emergency (ER) | payer BC, OTHER ==
[2020-05-30] MEDS ORDERED: Sodium Chloride 0.9% 2.5 ML Syringe FLUSH PRN (12:18)
[2020-05-30] MEDS ORDERED: Sodium Chloride 0.9% 10 ML Syringe FLUSH PRN (12:18)
--- NOTE | 2020-05-30 12:40 | EDM.PDOC ---
ED HPI GENERAL MEDICAL PROBLEM - General Chief Complaint: Gastrointestinal Problem Stated Complaint: HEMORRHOIDS Time Seen by Provider: 05/30/20 11:43 Source of Information: Reports: Patient - History of Present Illness INITIAL COMMENTS - FREE TEXT/NARRATIVE: HISTORY AND PHYSICAL: History of present illness: Patient is a 60-year-old male who presents to the emergency room with complaints of a large hemorrhoid which is painful. He noticed approximately 1 week ago and it has not changed in size or pain intensity. Increased pain with bowel movements. He states he tried to use a razor blade to cut it open and is concerned he may have infected it. Patient denies any fever, chills, headache, change in vision, syncope or near syncope. Denies any chest pain, back pain, shortness of breath or cough. Denies any abdominal pain, nausea, vomiting, diarrhea, constipation or dysuria. Has not noted any blood in urine or stool. Patient has been eating and drinking appropriately. Review of systems: As per history of present illness and below otherwise all systems reviewed and negative. Past medical history: As per history of present illness and as reviewed below otherwise noncontributory. Surgical history: As per history of present illness and as reviewed below otherwise noncontributory. Social history: See social history for further information Family history: As per history of present illness and as reviewed below otherwise noncontributory. Physical exam: General: Well developed and well nourished. Alert and orientated x 3. Nontoxic in appearance and in no acute distress. Vital signs are stable and have been reviewed by me. Nursing notes were reviewed. HEENT: Atraumatic, normocephalic, pupils equal and reactive bilaterally, negative for conjunctival pallor or scleral icterus, mucous membranes moist, TMs normal bilaterally, throat clear, neck supple, nontender, trachea midline. No drooling or trismus noted. No meningeal signs. No hot potato voice noted. Lungs: Clear to auscultation, breath sounds equal bilaterally, chest nontender. Normal work of breathing, no accessory muscles used. Heart: S1S2, regular rate and rhythm without overt murmur Abdomen: Soft, nondistended, nontender. Negative for masses or hepatosplenomegaly. Negative for costovertebral tenderness. Pelvis: Stable nontender. Rectal: This was done with consent and a drug and alcohol counsellor at the bedside. Patient has a large hemorrhoid noted to the 1 to 4 o'clock position. No active bleeding. He does have loose stool seeping from his rectum. Skin: Intact, warm, dry. No lesions or rashes noted. Hematologic: No petechiae or purpra. Mucosa appropriate color and normal nail bed color and refill. Extremities: Atraumatic, moves all extremities per self without difficulty or deficits, negative for cords or calf pain. Neurovascular unremarkable. Neuro: Awake, alert, oriented. Cranial nerves II through XII unremarkable. Cerebellum unremarkable. Motor and sensory unremarkable throughout. Exam nonfocal. Psychiatric: Mood and affect are appropriate. Normal thought process. Answering questions appropriately. Notes: Dr. Cam happened to be here for another patient and I did ask for her to evaluate this patient as he is very uncomfortable and concerned it may be infected. I have spoken with the patient/caregiver and discussed today's findings, in addition to providing specific details for plan of care. Reassessment at the time of disposition demonstrates that the patient is in no acute distress. The patient has remained stable throughout the entire ED visit and is without objective evidence for acute process requiring urgent intervention or hospitalization. The patient is stable for discharge, counseling was provided and we discussed in great detail signs and symptoms that would prompt them to return to the Emergency Department. Medication, follow up and supportive care measures were reviewed and discussed. Voices understanding and is agreeable to plan of care. Denies any further questions or concerns at this time. Diagnostics: None Therapeutics: None Prescription: Bret[place] Butt balm, Mexican Hat Impression: Hemorrhoids Plan: 1. Today Dr Cam was able to evaluate you for your hemorrhoids. Please apply the "Bretts Butt [place]" 4 times daily. If for some reason you do develop headaches you can stop this medication. Otherwise please take this until you follow-up with the surgeon. 2. Add fiber to your diet. Sitz bath 2-3 times daily or after bowel movements. Increase your fluids. You can take the [place], 1-2 tabs every 4-6 hours as needed for pain. This is a narcotic pain medication so do not take it while driving or needing to be functioning outside of the house. 3. We encourage you to follow up with your primary care provider and/or recommended specialist in the next few days for re-evaluation and further care/management. If your symptoms should worsen, new symptoms develop or any of the signs and symptoms we discussed should arise please return to the emergency room or call 911 (if needed). Definitive disposition and diagnosis as appropriate pending reevaluation and review of above. Buttock Pain Score (Numeric/FACES): 10 - Related Data Allergies Allergy/AdvReac Type Severity Reaction Status Date / Time No Known Allergies Allergy Verified 05/30/20 12:17 Home Meds: Home Meds . [No Known Home Meds] 05/30/20 [History] Past Medical History Cardiovascular History: Reports: None Respiratory History: Reports: Pneumonia, Recurrent Other Respiratory History: With CPAP Other Gastrointestinal History: Blood per rectum, hx: Diverticulitis Other Genitourinary History: Hx: Abnormal Prostate exam Psychiatric History: Reports: Anxiety Endocrine/Metabolic History: Reports: None - Infectious Disease History Infectious Disease History: Reports: Novel Coronavirus - Past Surgical History Other HEENT Surgeries/Procedures: polyps from vocal cords removed Social & Family History - Family History Family Medical History: Noncontributory - Tobacco Use Tobacco Use Status *Q: Never Tobacco User - Caffeine Use Caffeine Use: Reports: None - Recreational Drug Use Recreational Drug Use: No ED ROS GENERAL - Review of Systems Review Of Systems: Comprehensive ROS is negative, except as noted in HPI. ED EXAM, GI/ABD - Physical Exam Exam: See Below (See dictation) Course - Vital Signs Last Recorded V/S: Last Vital Signs Temp 98.6 F 05/30/20 12:18 Pulse 78 05/30/20 12:18 Resp 16 05/30/20 12:18 BP 128/70 05/30/20 12:18 Pulse Ox 98 05/30/20 12:18 - Orders/Labs/Meds Orders: Active Orders 24 hr Category Date Time Status Notify Provider Consults [RC] ASDIRECTED Care 05/30/20 12:35 Ordered Consult to Physician [CONS] Stat Cons 05/30/20 12:34 Ordered Sodium Chloride 0.9% [Saline Flush] Med 05/30/20 12:18 Active 10 ml FLUSH ASDIRECTED PRN Sodium Chloride 0.9% [Saline Flush] Med 05/30/20 12:18 Active 2.5 ml FLUSH ASDIRECTED PRN Saline Lock Insert [OM.PC] Stat Oth 05/30/20 12:18 Ordered Medication Orders Sodium Chloride (Saline Flush) 10 ml FLUSH ASDIRECTED PRN PRN Reason: Keep Vein Open Sodium Chloride (Saline Flush) 2.5 ml FLUSH ASDIRECTED PRN PRN Reason: Keep Vein Open Meds: Medications Generic Name Dose Route Start Last Admin Trade Name Freq PRN Reason Stop Dose Admin Sodium Chloride 10 ml 05/30/20 12:18 Saline Flush FLUSH ASDIRECTED PRN Keep Vein Open Sodium Chloride 2.5 ml 05/30/20 12:18 Saline Flush FLUSH ASDIRECTED PRN Keep Vein Open Departure - Departure Time of Disposition: 12:42 Disposition: Home, Self-Care 01 Clinical Impression: Acute hemorrhoid - Discharge Information Instructions: Hemorrhoids, [id number] Referrals: PCP,None [Primary Care Provider] - Forms: ED Department Discharge Additional Instructions: The following information is given to patients seen in the emergency department who are being discharged to home. This information is to outline your options for follow-up care. We provide all patients seen in our emergency department with a follow-up referral. The need for follow-up, as well as the timing and circumstances, are variable depending upon the specifics of your emergency department visit. If you don't have a primary care physician on staff, we will provide you with a referral. We always advise you to contact your personal physician following an emergency department visit to inform them of the circumstance of the visit and for follow-up with them and/or the need for any referrals to a consulting specialist. The emergency department will also refer you to a specialist when appropriate. This referral assures that you have the opportunity for follow-up care with a specialist. All of these measure are taken in an effort to provide you with optimal care, which includes your follow-up. Under all circumstances we always encourage you to contact your private physician who remains a resource for coordinating your care. When calling for follow-up care, please make the office aware that this follow-up is from your recent emergency room visit. If for any reason you are refused follow-up, please contact the [facility] Emergency Department at and asked to speak to the emergency department charge nurse. [facility] Special[facility] - General Surgery: Dr CAM [facility] [address] [place] [address], [address] [place] [address] Thank you for choosing the [facility] emergency department in [place] for your medical needs today. It was a pleasure caring for you. Today you were seen in the emergency department for hemorrhoids. 1. Today Dr Cam was able to evaluate you for your hemorrhoids. Please apply the "Bretts Butt [place]" 4 times daily. If for some reason you do develop headaches you can stop this medication. Otherwise please take this until you follow-up with the surgeon. 2. Add fiber to your diet. Sitz bath 2-3 times daily or after bowel movements. Increase your fluids. You can take the [place], 1-2 tabs every 4-6 hours as needed for pain. This is a narcotic pain medication so do not take it while driving or needing to be functioning outside of the house. 3. We encourage you to follow up with your primary care provider and/or recomm ended specialist in the next few days for re-evaluation and further care/management. If your symptoms should worsen, new symptoms develop or any of the signs and symptoms we discussed should arise please return to the emergency room or call 911 (if needed). Sepsis Event Note (ED) - Evaluation Sepsis Screening Result: No Definite Risk - Focused Exam Vital Signs: Vital Signs Temp Pulse Resp BP Pulse Ox 05/30/20 12:18 98.6 F 78 16 128/70 98 - My Orders Last 24 Hours: My Active Orders 05/30/20 12:18 Sodium Chloride 0.9% [Saline Flush] 10 ml FLUSH ASDIRECTED PRN Sodium Chloride 0.9% [Saline Flush] 2.5 ml FLUSH ASDIRECTED PRN Saline Lock Insert [OM.PC] Stat 05/30/20 12:34 Consult to Physician [CONS] Stat 05/30/20 12:35 Notify Provider Consults [RC] ASDIRECTED - Assessment/Plan Last 24 Hours: My Active Orders 05/30/20 12:18 Sodium Chloride 0.9% [Saline Flush] 10 ml FLUSH ASDIRECTED PRN Sodium Chloride 0.9% [Saline Flush] 2.5 ml FLUSH ASDIRECTED PRN Saline Lock Insert [OM.PC] Stat 05/30/20 12:34 Consult to Physician [CONS] Stat 05/30/20 12:35 Notify Provider Consults [RC] ASDIRECTED
[2020-05-30 12:58] VITALS: BP 134/86; PULSE 71
--- NOTE | 2020-05-30 16:55 | PCM.CONS ---
H&P History of Present Illness - General Date of Service: 05/30/20 Source of Information: Patient History Limitations: Reports: No Limitations - History of Present Illness Initial Comments - Free Text/Narative: Patient is a 60-year-old male who presented the ER today with complaints of perianal pain and drainage. The patient states that his symptoms started about a week ago. He noticed a bulge along his anus. He felt that this was possibly an abscess and try to drain it using a razor. He got some blood and a little bit of fluid out of the area but the pain and swelling persisted. His past medical history significant for COPD as well as a diagnosis of COVID on May 10 of this month. He denies every having symptoms like this before. Sitting and having a bowel movement seem to make the pain worse. Buttock Pain Score (Numeric/FACES): 10 - Related Data Allergies/Adverse Reactions: Allergies Allergy/AdvReac Type Severity Reaction Status Date / Time No Known Allergies Allergy Verified 05/30/20 12:17 Home Medications: Home Meds . [No Known Home Meds] 05/30/20 [History] Past Medical History Cardiovascular History: Reports: None Respiratory History: Reports: COPD, Pneumonia, Recurrent Other Respiratory History: With CPAP Other Gastrointestinal History: Blood per rectum, hx: Diverticulitis Other Genitourinary History: Hx: Abnormal Prostate exam Psychiatric History: Reports: Anxiety Endocrine/Metabolic History: Reports: None - Infectious Disease History Infectious Disease History: Reports: Novel Coronavirus - Past Surgical History Other HEENT Surgeries/Procedures: polyps from vocal cords removed GI Surgical History: Reports: Other (See Below) ("throat" surgery) Social & Family History - Family History Family Medical History: Noncontributory - Tobacco Use Tobacco Use Status *Q: Never Tobacco User - Caffeine Use Caffeine Use: Reports: None - Recreational Drug Use Recreational Drug Use: No H&P Review of Systems - Review of Systems: Review Of Systems: Comprehensive ROS is negative, except as noted in HPI. Exam - Exam Exam: See Below - Vital Signs Vital Signs: Last Vital Signs Temp 37.0 C 05/30/20 12:18 Pulse 71 05/30/20 12:55 Resp 16 05/30/20 12:55 BP 134/86 05/30/20 12:55 Pulse Ox 95 05/30/20 12:55 Weight: 108.862 kg - Exam General: Alert, Oriented, Cooperative HEENT: Conjunctiva Clear, Mucosa Moist & [place] Lungs: Normal Respiratory Effort Cardiovascular: Regular Rate GI/Abdominal Exam: Soft, Non-Tender Rectal (Males) Exam: Other (Prolapsed enlarged right lateral internal hemorrhoid, no evidence of necrosis or infeciton, stool staining around anoderm ) Back Exam: Normal Inspection Extremities: Normal Inspection Sepsis Event Note - Evaluation Sepsis Screening Result: No Definite Risk - Focused Exam Vital Signs: Vital Signs Temp Pulse Resp BP Pulse Ox 05/30/20 12:55 71 16 134/86 95 05/30/20 12:18 37.0 C 78 16 128/70 98 Consult PN Assessment/Plan Procedures: Procedures AIRWAY INHALATION TREATMENT (10/23/18) ASSAY OF FREE THYROXINE (07/06/18) ASSAY OF PSA TOTAL (03/01/19) ASSAY THYROID STIM HORMONE (07/06/18) BLOOD CULTURE FOR BACTERIA (10/23/18) CHEST X-RAY 2VW FRONTAL&LATL (12/28/13) CO/MEMBANE DIFFUSE CAPACITY (10/24/16) COMPLETE CBC W/AUTO DIFF WBC (05/17/20) COMPREHEN METABOLIC PANEL (05/17/20) CULTURE OTHR SPECIMN AEROBIC (10/23/18) DIAGNOSTIC COLONOSCOPY (06/29/15) ELECTROCARDIOGRAM TRACING (10/23/18) EMERGENCY DEPT VISIT (05/17/20) EVALUATION OF WHEEZING (10/24/16) GLYCOSYLATED HEMOGLOBIN TEST (02/28/20) HYDRATE IV INFUSION ADD-ON (05/17/20) LIPID PANEL (02/28/20) METABOLIC PANEL TOTAL CA (10/23/18) RBC SED RATE AUTOMATED (05/10/15) ROUTINE VENIPUNCTURE (05/17/20) SMEAR GRAM STAIN (10/23/18) THER/PROPH/DIAG IV INF INIT (05/17/20) TX/PRO/DX INJ NEW DRUG ADDON (05/17/20) URINALYSIS AUTO W/SCOPE (03/01/19) X-RAY EXAM CHEST 1 VIEW (05/17/20) X-RAY EXAM CHEST 2 VIEWS (10/23/18) X-RAY EXAM OF ELBOW (11/18/16) (1) Acute hemorrhoid SNOMED Code(s): 06673803, 12200268 Code(s): K64.9 - UNSPECIFIED HEMORRHOIDS Problem List Initiated/Reviewed/Updated: Yes Plan: The patient has an acutely enlarged and prolapsed internal hemorrhoid. Given his recent COVID diagnosis as well as respiratory complications secondary to this, he is at increased risk for surgical complications 30 days from diagnosis. Will try conservative measures first to see if these improve his symptoms. At this time he shows no evidence of infection or necrosis of the tissue. I explained the importance of fiber supplementation as well as drinking plenty of fluids throughout the day. Will use nifedipine and lidocaine ointment 4 times a day as needed for pain. He should do sitz baths 2-3 times a day. Will give [place] as needed for severe pain. He should avoid heavy lifting or strenuous activity. I will see him again in clinic in one week to follow-up on his symptoms. If these do not improve he may need surgery in order to excise this prolapsed hemorrhoid.
== END 2020-05-30 12:55 | disposition home or self-care (01) ==
LOC: MW.ED 11:40
DX: K64.9 Unspecified hemorrhoids (principal)
CPT/HCPCS: 99282